=== PATIENT | female | born 1985 | race Hispanic/Latino ===

== ENCOUNTER 2016-10-26 10:23 | Emergency (ER) | payer OTHER ==
[2016-10-26] MEDS ORDERED: DUONEB *Not for PRN Use IH ONE (11:40)
--- NOTE | 2016-10-26 11:47 | Emergency Department Report ---
ED General Adult HPI - General Chief complaint: Dyspnea/Respdistress Stated complaint: HESHAM Time Seen by Provider: 10/26/16 11:31 Source: patient, EMS Mode of arrival: Stretcher Limitations: No Limitations - History of Present Illness Initial comments: Patient reports frequent cough and yellow productive sputum of 2 weeks' duration. She has not seen a physician over this time. She states that she has not been able to smoke for 4 days because of her cough. She describes a vague shortness of breath. She has no chest pain fever or chills. She states that while she was in the emergency department when she coughs she feels some strain in her left trapezius muscle area. She has been previously treated with albuterol. He's had no hemoptysis, chest pain, leg pain or swelling. 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) Improves with: none Worsens with: other Associated Symptoms: denies other symptoms (except as above), cough Treatments Prior to Arrival: none - Related Data Previous Rx's Medication Instructions Recorded Last Taken Type Atenolol [Tenormin] 25 mg PO DAILY #30 tablet 10/07/15 11/09/15 Rx Atenolol [Tenormin] 25 mg PO DAILY #30 tab 11/13/15 Unknown Rx ALBUTEROL Inhaler [ProAir HFA 2 puff IH Q6H PRN #1 inha 10/26/16 Unknown Rx Inhaler] Levofloxacin [Levaquin] 750 mg PO QDAY #9 tablet 10/26/16 Unknown Rx Allergies Allergy/AdvReac Type Severity Reaction Status Date / Time Penicillins Allergy Unknown Verified 10/07/15 11:08 ED Review of Systems ROS: Stated complaint: HESHAM Other details as noted in HPI Constitutional: denies: chills, fever Eyes: denies: eye pain, eye discharge, vision change ENT: denies: ear pain, throat pain Respiratory: cough, shortness of breath Cardiovascular: denies: chest pain, palpitations Endocrine: no symptoms reported Gastrointestinal: denies: abdominal pain, nausea, diarrhea Genitourinary: denies: urgency, dysuria, discharge Musculoskeletal: denies: back pain, joint swelling, arthralgia Skin: denies: rash, lesions Neurological: denies: headache, weakness, paresthesias Psychiatric: denies: anxiety, depression Hematological/Lymphatic: denies: easy bleeding, easy bruising ED Past Medical Hx - Past Medical History Previous Medical History?: Yes Hx Hypertension: Yes Additional medical history: Rapid heartbeat-on atenolol. Denies A-fib, SVT. 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 - Social History Smoking Status: Current Every Day Smoker Substance Use Type: Alcohol - Medications Home Medications: Home Medications Medication Instructions Recorded Confirmed Last Taken Type Atenolol [Tenormin] 25 mg PO DAILY #30 tablet 10/07/15 11/13/15 11/09/15 Rx Atenolol [Tenormin] 25 mg PO DAILY #30 tab 11/13/15 Unknown Rx ALBUTEROL Inhaler [ProAir HFA 2 puff IH Q6H PRN #1 inha 10/26/16 Unknown Rx Inhaler] Levofloxacin [Levaquin] 750 mg PO QDAY #9 tablet 10/26/16 Unknown Rx ED Physical Exam - General Limitations: No Limitations General appearance: alert, in no apparent distress - Head Head exam: Present: atraumatic, normocephalic - Eye Eye exam: Present: normal appearance. Absent: scleral icterus - ENT ENT exam: Present: mucous membranes moist - Neck Neck exam: Present: normal inspection - Respiratory Respiratory exam: Present: rhonchi. Absent: respiratory distress - Cardiovascular Cardiovascular Exam: Present: regular rate, normal rhythm, tachycardia (101-112) . Absent: systolic murmur, diastolic murmur, rubs, gallop - GI/Abdominal GI/Abdominal exam: Present: soft, normal bowel sounds. Absent: distended, tenderness, guarding, rebound, rigid, organomegaly, mass - Extremities Exam Extremities exam: Present: normal inspection, normal capillary refill. Absent: tenderness, pedal edema, joint swelling, calf tenderness - Back Exam Back exam: Present: normal inspection - Neurological Exam Neurological exam: Present: alert, oriented X3, CN II-XII intact. Absent: motor sensory deficit - Psychiatric Psychiatric exam: Present: normal affect, normal mood - Skin Skin exam: Present: warm, dry, intact, normal color. Absent: rash ED Course Vital Signs 10/26/16 10/26/16 10/26/16 10:57 11:26 12:34 Temperature 98.5 F Pulse Rate 94 H Pulse Rate [ 88 Bilateral] Respiratory 18 18 Rate Respiratory 18 Rate [Bilateral ] Blood Pressure 125/84 O2 Sat by Pulse 95 Oximetry 10/26/16 12:41 Temperature Pulse Rate Pulse Rate [ 89 Bilateral] Respiratory Rate Respiratory 18 Rate [Bilateral ] Blood Pressure O2 Sat by Pulse Oximetry - Reevaluation(s) Reevaluation #1: Patient meets criteria for outpatient treatment. I will continue her on Levaquin. She is strongly encouraged to follow up and compliance is emphasized. She is given return criteria. She is given a primary care referral. 10/26/16 12:55 ED Medical Decision Making - Lab Data Result diagrams: 10/26/16 11:34 10/26/16 11:34 Laboratory Results - last 24 hr 10/26/16 10/26/16 10/26/16 11:34 11:34 11:34 WBC 14.2 H RBC 4.17 Hgb 13.0 Hct 39.3 MCV 94 MCH 31 MCHC 33 RDW 13.9 Plt Count 313 Lymph % (Auto) 7.2 L [place] % (Auto) 7.5 H Eos % (Auto) 1.1 Baso % (Auto) 0.3 Lymph # 1.0 L [place] # 1.1 H Eos # 0.2 Baso # 0.0 Seg Neutrophils % 83.9 H Seg Neutrophils # 11.9 H Sodium 137 Potassium 4.2 Chloride 97.9 L Carbon Dioxide 24 Anion Gap 19 BUN 7 Creatinine 0.6 L Estimated GFR > 60 BUN/Creatinine Ratio 11.66 Glucose 100 Calcium 9.0 HCG, Qual Negative - Radiology Data interpreted by me: There is an early infiltrate in the left lower lobe Critical care attestation.: If time is entered above; I have spent that time in minutes in the direct care of this critically ill patient, excluding procedure time. ED Disposition Clinical Impression: Left lower lobe pneumonia Qualifiers: Pneumonia type: due to unspecified organism Qualified Code(s): J18.1 - Lobar pneumonia, unspecified organism Disposition: DC-01 TO HOME OR SELFCARE Is pt being admited?: No Does the pt Need Aspirin: No Condition: Stable Instructions: Bacterial Pneumonia (ED) Additional Instructions: Is essentially follow-up with a primary care provider. It is also essentially take her medication as prescribed. Return to the emergency department any acute change or problem or worsening symptoms. Begin oral antibiotic tomorrow. You have received her first dose today. Prescriptions: ALBUTEROL Inhaler [ProAir HFA Inhaler] 2 puff IH Q6H PRN #1 inha PRN Reason: Wheezing Levofloxacin [Levaquin] 750 mg PO QDAY #9 tablet Referrals: PRIMARY MD GRACE [Primary Care Provider] - 3-5 Days NING FELDER MD [Staff Physician] - 2-[address] [facility] [Provider Group] - 2-3 Days Time of Disposition: 12:58
[2016-10-26 11:57] LABS: Basophils % (Auto) 0.3 % (0.0-1.8); Eosinophils % (Auto) 1.1 % (0.0-4.3); Hematocrit 39.3 % (30.3-42.9); Mean Corpuscular HGB Conc 33 % (30-34); Mean Corpuscular Hemoglobin 31 pg (28-32); Mean Corpuscular Volume 94 fl (79-97); Platelet Count 313 K/mm3 (140-440); Red Blood Count 4.17 M/mm3 (3.65-5.03); Red Cell Distribution Width 13.9 % (13.2-15.2); White Blood Count 14.2 K/mm3 (4.5-11.0)
[2016-10-26 12:07] LABS: Anion Gap 19 mmol/L; BUN/Creatinine Ratio 11.66; Blood Urea Nitrogen 7 mg/dL (7-17); Carbon Dioxide 24 mmol/L (22-30); Chloride 97.9 mmol/L (98-107); Glucose 100 mg/dL (65-100); Potassium 4.2 mmol/L (3.6-5.0); Sodium 137 mmol/L (137-145)
[2016-10-26] MEDS ORDERED: LEVAQUIN 750MG/150ML 750 MG/150 ML BAG IV ONE (12:41)
--- NOTE | 2016-10-26 12:52 | XRay Report ---
CHEST 2 VIEWS INDICATION: Shortness of breath. COMPARISON: None similar at this institution. FINDINGS: PA and lateral chest radiographs demonstrate normal cardiomediastinal silhouette. Subtle approximately 5 cm haziness at the left lung base partly obscuring the left lateral costophrenic angle and the diaphragm laterally is nonspecific on the frontal view. Clear remainder lungs. Intact bones. CONCLUSION: Subtle left lung base pneumonia questioned, as described. Please correlate. Thank you for the opportunity to participate in this patient's care.
[2016-10-26 14:41] VITALS: BP 114/78
== END 2016-10-26 14:30 | disposition home or self-care (01) ==
LOC: ED 10:23
DX: J18.1 Lobar pneumonia, unspecified organism (principal); I10 Essential (primary) hypertension; F17.200 Nicotine dependence, unspecified, uncomplicated
CPT/HCPCS: 36415; 71020; 80048; 84443; 84703; 85025; 94640; 96365; 99284; J1956